=== PATIENT | male | born 1940 | race Caucasian/White ===

== ENCOUNTER 2017-03-17 10:55 | Emergency (ER) | payer MEDICARE | END 2017-03-17 14:21 | disposition home or self-care (01) | LOC: FER 10:55 | DX: S52.131A Displaced fracture of neck of right radius, initial encounter for closed fracture (principal); S22.31XA Fracture of one rib, right side, initial encounter for closed fracture; M25.421 Effusion, right elbow; R51 Headache; M25.561 Pain in right knee; M25.519 Pain in unspecified shoulder; I51.9 Heart disease, unspecified; Z95.5 Presence of coronary angioplasty implant and graft; Z95.2 Presence of prosthetic heart valve; Z79.899 Other long term (current) drug therapy; Y92.009 Unspecified place in unspecified non-institutional (private) residence as the place of occurrence of the external cause; W17.81XA Fall down embankment (hill), initial encounter | CPT/HCPCS: 71101; 73030; 73090 ==